=== PATIENT | female | born 1970 | race Caucasian/White ===

== ENCOUNTER 2019-02-15 18:23 | Emergency (ER) | payer OTHER ==
[2019-02-15 18:47] VITALS: BP 140/89; PULSE 65; TEMP 97.6; BMI 20.2
--- NOTE | 2019-02-16 08:25 | EKG ---
Test Reason : Blood Pressure : / mmHG Vent. Rate : 062 BPM Atrial Rate : 062 BPM P-R Int : 182 ms QRS Dur : 080 ms QT Int : 442 ms P-R-T Axes : 046 070 071 degrees QTc Int : 448 ms NORMAL SINUS RHYTHM CANNOT RULE OUT ANTERIOR INFARCT , AGE UNDETERMINED ABNORMAL ECG NO PREVIOUS ECGS AVAILABLE Confirmed by DELORES CORREA MD ([id number]) on 02/16/2019 8:25:06 AM Referred By: MD ALLAN Confirmed By:DELORES CORREA MD
== END 2019-02-15 20:02 | disposition home or self-care (01) ==
LOC: FER 18:23
DX: R07.89 Other chest pain (principal)
CPT/HCPCS: 93005; 99282-25

== ENCOUNTER 2022-09-11 12:50 | Emergency (ER) | payer OTHER ==
[2022-09-11 13:34] VITALS: BP 149/80; PULSE 77; RESP 16; TEMP 98.9; BMI 21.6
== END 2022-09-11 13:39 | disposition home or self-care (01) ==
LOC: FER 12:50
PROC: 0HQGXZZ Repair Left Hand Skin, External Approach (ICD-10-PCS; principal; 2022-09-11)
DX: S61.412A Laceration without foreign body of left hand, initial encounter (principal)
CPT/HCPCS: 99283-25

== ENCOUNTER 2022-09-21 10:08 | Emergency (ER) | payer OTHER ==
[2022-09-21 10:22] VITALS: BP 135/82; PULSE 68; RESP 16; TEMP 98.7; BMI 21.2
== END 2022-09-21 11:13 | disposition home or self-care (01) ==
LOC: FER 10:08
DX: S61.211A Laceration without foreign body of left index finger without damage to nail, initial encounter (principal); W26.0XXA Contact with knife, initial encounter; Z48.02 Encounter for removal of sutures
CPT/HCPCS: 99281-25

== ENCOUNTER 2024-06-04 20:48 | Emergency (ER) | payer OTHER ==
[2024-06-04 21:10] VITALS: RESP 18; TEMP 98; BMI 22.4
[2024-06-04 21:27] LABS: HEMOGLOBIN 13.2 G/dL (10.7-15.3); MCH 29.5 pg (25.7-33.7); MCHC 32.3 g/dl (32.0-36.0); MEAN CELL VOLUME 91.3 fl (80-96); PLATELET COUNT 312.9 10^3/uL (134-434); RBC 4.49 10^6/uL (3.60-5.2); RDW 14.1 % (11.6-15.6); WHITE BLOOD COUNT 9.6 10^3/uL (4.0-10.8)
[2024-06-04 21:51] LABS: ALBUMIN 4.8 g/dl (3.4-5.0); ALK PHOS 50 U/L (45-117); ANION GAP 8 mmol/L (4-13); BILIRUBIN,TOTAL 0.3 mg/dl (0.2-1); CALCIUM 10.1 mg/dl (8.5-10.1); CHLORIDE 102 mmol/L (98-107); CO2 27 mmol/L (21-32); CREATININE 0.7 mg/dl (0.6-1.3); GLUCOSE,RANDOM 95 mg/dl (74-106); MAGNESIUM 2.2 mg/dL (1.8-2.4); POTASSIUM 4.4 mmol/L (3.5-5.1); SGOT/AST 19 U/L (15-37); SGPT/ALT 18 U/L (7-52); SODIUM 137 mmol/L (136-145); TOT PROT 7.5 g/dl (6.4-8.2)
[2024-06-04 22:06] LABS: EPITHELIAL CELLS 0-5 /hpf
[2024-06-04] MEDS ORDERED: METOCLOPRAMIDE HCL INJECTION 10 MG/2 ML VIAL ONE (22:29)
[2024-06-04] MEDS ORDERED: KETOROLAC TROMETHAMINE 30 MG/1 ML VIAL ONE (22:29)
[2024-06-04] MEDS: KETOROLAC TROMETHAMINE 30 MG/1 ML VIAL IVPUSH ONE (22:39)
[2024-06-04] MEDS: METOCLOPRAMIDE HCL INJECTION 10 MG/2 ML VIAL IVPB ONE (22:39)
[2024-06-04 23:23] VITALS: BP 123/89; PULSE 68
== END 2024-06-04 23:28 | disposition home or self-care (01) ==
LOC: FER 20:48
PROC: 3E0333Z Introduction of Anti-inflammatory into Peripheral Vein, Percutaneous Approach (ICD-10-PCS; principal; 2024-06-04)
PROC: 3E033GC Introduction of Other Therapeutic Substance into Peripheral Vein, Percutaneous Approach (ICD-10-PCS; 2024-06-04)
DX: G43.909 Migraine, unspecified, not intractable, without status migrainosus (principal); R07.89 Other chest pain; R00.2 Palpitations; R42 Dizziness and giddiness
CPT/HCPCS: 36415; 70450-TC; 80053; 81003; 81015; 82550; 83735; 84443; 84484; 85027; 93005; 99285-25